=== PATIENT | male | born 2000 | race Caucasian/White ===

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

== ENCOUNTER 2022-12-12 09:00 | Outpatient (CLI) | payer BC, SELFPAY ==
[2022-12-12 12:26] LABS: Abs Immature Grans 0.07 10^3/uL (0.0-0.06); Absolute Basophil Count 0.06 10^3/uL (0.0-0.2); Absolute Eosinophil Count 0.21 10^3/uL (0.0-0.7); Absolute Lymphocyte Count 1.86 10^3/uL (1.2-3.4); Absolute Monocyte Count 0.62 10^3/uL (0.1-0.8); Basophils % 0.9; Eosinophils % 3.3; HCT 46.3 % (40.0-50.0); HGB 16.2 g/dL (13.5-17.5); Immature Grans % 1.1; Lymphocytes % 29.4; MCV 86 fL (80-95); MPV 9.3 fL (8.0-11.0); Monocytes % 9.8; Neutrophils % 55.5; Platelet Count 272 10^3/uL (130-400); RDW 12.1 % (11.8-14.1); RDW-SD 37.7 fL; WBC 6.32 10^3/uL (4.4-10.8)
[2022-12-12 12:50] LABS: Anion Gap 4.9 mmol/L (3-11); BUN 16 mg/dL (7-18); CO2 32.1 mmol/L (21.0-32.0); CREATININE 1.1 mg/dL (0.70-1.30); Calcium 9.1 mg/dL (8.5-10.1); Chloride 104 mmol/L (98-107); Cholesterol 112 mg/dL (<200); Estimated GFR 97.95 (mL/min/1.73m2); Ferritin 106 ng/mL (26-388); Glucose 96 mg/dL (74-106); HDL Cholesterol 59 mg/dL (40-60); Potassium 4.1 mmol/L (3.5-5.1); Sodium 141 mmol/L (136-145); TSH (W/Ref FT4) 1.54 uIU/mL (0.36-3.74)
[2022-12-12 12:56] LABS: Triglyceride < 25 mg/dL (<150)
[2022-12-12 13:08] LABS: LDL CHOLESTEROL 47 mg/dL (<100)
== END 2022-12-12 09:01 | disposition home or self-care (01) ==
LOC: LOS 09:01
PROVIDERS: PCP Nurse Practitioner Family; Visit Provider Nurse Practitioner Family
DX: Z00.00 Encounter for general adult medical examination without abnormal findings (principal)
CPT/HCPCS: 36415; 80048; 80061; 83721; 82728; 84443; 85025

== ENCOUNTER 2023-12-17 12:14 | Outpatient (REF) | payer BC, SELFPAY ==
[2023-12-19 13:14] LABS: Chlamydia Result Negative (Negative); GC Result Negative (Negative)
== END 2023-12-17 12:15 | disposition home or self-care (01) ==
LOC: LBN 12:14
PROVIDERS: PCP Nurse Practitioner Family; Visit Provider Nurse Practitioner Family
DX: Z00.00 Encounter for general adult medical examination without abnormal findings (principal); Z11.3 Encounter for screening for infections with a predominantly sexual mode of transmission
CPT/HCPCS: 87491; 87591